=== PATIENT | male | born 1980 | race Caucasian/White ===

== ENCOUNTER → 2017-08-05 | Outpatient (CLI) | payer OTHER ==
[~2017-08-05] MED LIST: BENTYL 10 MG CA10 M1 PO; GLIPIZIDE 10 MG10 MG PO; LISINOPRIL10 MG PO; METFORMIN HCL500 MG PO; VENTOLIN HFA INH8 GM INH
== END ==
LOC: M.CT 14:15
DX: Z13.6 Encounter for screening for cardiovascular disorders (principal)

== ENCOUNTER 2017-12-18 16:01 | Emergency (ER) | payer BC ==
[~2017-12-18] VITALS: Ht 180.3 cm; Wt 96.2 kg
[2017-12-18] MEDS ORDERED: METFORMIN HCL500 MG PO (16:11)
[2017-12-18] MEDS ORDERED: LISINOPRIL10 MG PO (16:11)
[2017-12-18] MEDS ORDERED: BENTYL 10 MG CA10 M1 PO (16:11)
[2017-12-18] MEDS ORDERED: GLIPIZIDE 10 MG10 MG PO (16:11)
[2017-12-18 16:59] LABS: ABSOLUTE EOSINOPHILS 0.1 thou/uL (0.0-0.7); ABSOLUTE LYMPHOCYTES 1.5 thou/uL (0.8-5.3); ABSOLUTE MONOCYTES 0.3 thou/uL (0.0-1.2); ABSOLUTE NEUTROPHILS 7.4 thou/uL (1.6-8.1); BASOPHILS 0.5 %; EOSINOPHILS 1.2 %; HEMATOCRIT 44.8 % (42.0-52.0); HEMOGLOBIN 15.2 gm/dL (14.0-18.0); MCH 29.4 pg (26.0-34.0); MCHC 33.9 g/dL (28.0-37.0); MCV 86.7 fL (80.0-100.0); MONOCYTES 3.5 %; MPV 8.7 fl. (7.2-11.1); NUCLEATED RBCS 0 /100WBC; PLATELET COUNT* 150 thou/uL (150-400); POLYS 78.8 %; RBC 5.17 mil/uL (4.50-6.00); RDW-CV 13.2 % (10.5-14.5); WBC 9.5 thou/uL (4.0-11.0)
[2017-12-18 17:06] LABS: ANION GAP 6 mmol/L (7-16); BUN 14 mg/dL (7-18); CALCIUM 8.8 mg/dL (8.5-10.1); CHLORIDE 103 mmol/L (98-107); CO2 28 mmol/L (21-32); GLUCOSE 185 mg/dL (70-99); POTASSIUM 4.1 mmol/L (3.5-5.1); SODIUM 137 mmol/L (136-145)
[2017-12-18 17:13] LABS: ALBUMIN 3.5 g/dL (3.4-5.0); ALKALINE PHOSPHATASE 65 U/L (46-116); SGOT 11 U/L (15-37); SGPT 22 U/L (30-65); TOTAL BILIRUBIN 0.4 mg/dL (<0.1-1.0); TOTAL PROTEIN 6.4 g/dL (6.4-8.2); TROPONIN-I LEVEL <0.06 ng/mL (<0.06)
[2017-12-18] MEDS ORDERED: VENTOLIN HFA INH8 GM INH (17:27)
[2017-12-18 17:36] VITALS: BP 108/78
--- NOTE | 2017-12-19 15:17 | EKG ---
[place] [address] ELECTROCARDIOGRAM REPORT Name: SHARRI SALAS Room: [facility]#: [id number] Admission: 12/18/17 Attend Phys: Discharge: 12/18/17 Date of : 82 Report #: [id number] THIS REPORT FOR: //name// [facility] ED Test Date: 2017-12-18 Test Time: 16:46:17 Pat Name: SHARRI SALAS Department: Room: Gender: [place] Man: : 1980 Requested By: Mila Lundberg Order Number: [id number] MD: Tr Arredondo Measurements Intervals [place] Rate: 91 P: 22 PA: 132 QRS: 24 QRSD: 82 T: 32 QT: 341 QTc: 420 Interpretive Statements Sinus rhythm Probable left atrial enlargement No previous ECG available for comparison Electronically Signed On 12-19-2017 15:17:17 CDT by Tr Arredondo [email or web address] <ELECTRONICALLY SIGNED> By: Tr Arredondo MD, [facility] 12/19/17 1517 1646 [id number] Tr Arredondo MD, FACC /EPI
== END 2017-12-18 17:37 | disposition home or self-care (01) ==
LOC: M.ERS 16:01
PROVIDERS: Nurse Practitioner Family
DX: J20.9 Acute bronchitis, unspecified (principal); E11.9 Type 2 diabetes mellitus without complications